=== PATIENT | male | born 2005 | race Caucasian/White ===

== ENCOUNTER 2023-05-16 22:53 | Emergency (ER) | payer SELFPAY ==
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
[2023-05-16 22:58] VITALS: BP 117/74; PULSE 111; RESP 18; TEMP 36.8; O2SAT 97; BMI 23.1
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
[2023-05-17 01:23] VITALS: BP 95/65; PULSE 93; RESP 16; TEMP 37.2; O2SAT 96
== END 2023-05-17 01:29 | disposition home or self-care (01) ==
PROVIDERS: Emergency Provider Emergency Medicine
DX: S06.0X0A Concussion without loss of consciousness, initial encounter (principal); S60.511A Abrasion of right hand, initial encounter; Y04.2XXA Assault by strike against or bumped into by another person, initial encounter; Y93.9 Activity, unspecified; Y92.9 Unspecified place or not applicable; Y99.9 Unspecified external cause status; R51.9 Headache, unspecified
CPT/HCPCS: 70450; 99284